=== PATIENT | male | born 1980 ===

== ENCOUNTER 2019-10-11 19:25 | Emergency (ER) | payer OTHER ==
[~2019-10-11] VITALS: Ht 172.7 cm; Wt 89.8 kg
[2019-10-11] MEDS ORDERED: CLARITIN10 MG (19:53)
[2019-10-11] MEDS ORDERED: TYLENOL EXTRA500 MG (19:53)
[2019-10-11] MEDS ORDERED: KETO10TA2 PO (23:19)
== END 2019-10-11 23:40 | disposition home or self-care (01) ==
LOC: ER 19:25
DX: S90.112A Contusion of left great toe without damage to nail, initial encounter (principal); W22.8XXA Striking against or struck by other objects, initial encounter; Y93.01 Activity, walking, marching and hiking; Y92.092 Bedroom in other non-institutional residence as the place of occurrence of the external cause; Y99.8 Other external cause status